=== PATIENT | male | born 1970 | race Caucasian/White ===

== ENCOUNTER 2021-05-29 16:45 | Emergency (ER) | payer BC, SELFPAY ==
--- NOTE | ~2021-05-29 | XR_ITS ---
EXAMINATION: XR foot RT min 3V DATE: 05/29/2021 17:05 INDICATION: Right foot pain. Injury. TECHNIQUE: 4 views of right foot were obtained. COMPARISON: None. FINDINGS: Bone alignment is normal. There is a nondisplaced oblique fracture of diaphysis of second m etatarsal. Joint spaces are normal. There are enthesophytes at the posterior and plantar aspects of c alcaneal tuberosity. IMPRESSION: 1. Nondisplaced oblique fracture of diaphysis of second metatarsal. Reviewed, dictated and finalized at location A.
[2021-05-29 16:53] VITALS: BP 129/87; PULSE 94; RESP 12; TEMP 37; O2SAT 99
--- NOTE | 2021-05-29 17:13 | ED_ITS ---
HPI - Extremity Injury (Lower) General Chief Complaint: Extremity Injury, Lower Stated Complaint: rt foot injury Source: patient and RN notes reviewed Limitations: no limitations History of Present Illness HPI Narrative: The patient, previously mostly healthy, presents with right foot pain that is mild, worse with motion, better at rest located at the proximal metatarsals. Symptoms began after dropping a landscape brick on the area, co uple days ago. No bleeding, deformity Related Data Allergies Allergy/AdvReac Type Severity Reaction Status Date / Time No Known Allergies Allergy Verified 05/29/21 16:54 Review of Systems Review of Systems: Narrative: General/Constitutional: No weight loss,fever Eyes: N0: Redness,discharge Ears/Nose/Throat: No: Epistaxis,ear discharge Respiratory: Denies: Hemoptysis Gastrointestinal: No Vomiting, Bleeding-rectal Skin: No Lumps, eruption PMFSH Comments At time of signature, agree with nursing past medical, surgical, social and family history. There is no relevant family history pertinent to the presenting complaint Exam Narrative: Exam Narrative: General Appearance: Well appearing,, Conjunctiva clear Mouth/Throat: Normal appearing, Normal lips Supple Respiratory: Airway patent, No respiratory distress MS-foot: Normal strength (mostly intact, limited flexion/extension by pain), Tenderness (prox metatarsals, with mild decreased ROM), Swelling (proximal metatarsals), Other (no anterior drawer, no collateral laxity, no Achilles tenderness, no fifth MT tenderness) Skin: Warm, Dry, Normal color Neurological: A&O x3,, Normal affect Course Course Emergency Course: Films visualized, interpreted by radiologist, agree, ABnormal see report Vital Signs Vital signs: Vital Signs Temperature 98.6 F 05/29/21 16:53 Pulse Rate 94 05/29/21 16:53 Respiratory Rate 12 05/29/21 16:53 Blood Pressure 129/87 05/29/21 16:53 Pulse Oximetry 99 05/29/21 16:53 Temperature 98.6 F 05/29/21 16:53 Pulse Rate 94 05/29/21 16:53 Respiratory Rate 12 05/29/21 16:53 Blood Pressure 129/87 05/29/21 16:53 Pulse Oximetry 99 05/29/21 16:53 Discharge Plan Discharge Clinical Impression: Closed fracture of metatarsal bone of right foot Qualifiers: Encounter type: initial encounter Metatarsal bone: second Fracture alignment: nondisplaced Qualified Code(s): S92.324A - Nondisplaced fracture of second metatarsal bone, right foot, initial encounter for closed fracture Patient Disposition: Home, Self-Care Condition: Improved Instructions: Foot Fracture in Adults (ED) Additional Instructions: See podiatry or orthopedics in follow-up Use crutches without fail; since you declined further foot splinting/wrap in order to drive Prescriptions: New acetaminophen-codeine 300-30 mg tablet 1 - 1.5 tablet PO HS PRN (Reason: pain) Qty: 10 RF: 0 tramadol 50 mg tablet 50 mg PO TID PRN (Reason: pain) Qty: 14 RF: 0 Follow-up/Referrals: Rina,Ralph Crooks MD [Primary Care Provider] -
== END 2021-05-29 17:50 | disposition home or self-care (01) ==
PROVIDERS: Emergency Provider Emergency Medicine; PCP Internal Medicine
DX: S92.324A Nondisplaced fracture of second metatarsal bone, right foot, initial encounter for closed fracture (principal); W20.8XXA Other cause of strike by thrown, projected or falling object, initial encounter
CPT/HCPCS: 73630; 99213; G0463